=== PATIENT | male | born 1990 | race Caucasian/White ===

== ENCOUNTER 2022-10-09 12:19 | Inpatient (IN) ==
[2022-10-09] MEDS ORDERED: HALOPERIDOL LACTATE 5 MG/ML 1 ML VIAL IM STA (13:14)
[2022-10-09] MEDS ORDERED: LORazepam 1 MG/1 ML SYR IM STA (13:14)
--- NOTE | 2022-10-09 13:26 | Emergency Department Note ---
Impression & Plan Thought disorder, Suicidal ideation, Noncompliance with medications ED Provider Note INFORMANT: Patient ED PROVIDER(S): Jacob Garcia MD CHIEF COMPLAINT: Mental health evaluation PLAN: Disposition: Still patient Condition: Good Outpatient prescription management: none Referral: None MEDICAL DECISION MAKING: Patient presented because of suicidal statements and manic behavior. He was quite agitated and disruptive. He was difficult to direct in control. He did require restraint by the police. Due to his lack of cooperativity, concerns for his safety, and that of the staff I felt sedation was most appropriate in order to complete the evaluation and prevent any serious problems. Patient had a box B warrant done by the police. Case management myself did speak with the iesha ent's to gain additional history. This is the fourth hospitalization the patient has had since 2017. She did note that he is not taking his Latuda and Depakote. Due to the patient's agitation and behavior he did require chemical and physical restraints. He was given Haldol and Ativan. This worked well to have him calm down. He was able to sleep. Family did present to the emergency department, the patient's sister, brother and uncle and aunt. They noted that he has had a long issue with manic episodes and this current week has been very difficult. He has not been taking his medications as noted by the patient's . I did review the patient's current situation and need for inpatient treatment. They were very much in agreement and asked for his condition to be managed as an inpatient. The patient was frequently reassessed and is resting comfortably now. Family also noted that he has not slept in 3 to 4 days. The patient's vital signs remained stable. His case was signed out to Dr. Velasco at the change of shift. Triage Nursing notes reviewed and agree them. Vital Signs: reviewed and remarkable for no significant abnormalities Differential diagnosis: Mood disorder, infection, hypoglycemia, electrolyte abnormalities, cardiac sources, intracerebral event, toxicologic, trauma, neurologic, as well as other pathologies. Diagnostics interpreted by me: ECG: none Cardiac Monitoring: Cardiac monitoring ordered by me: The patient was placed on continuous cardiac monitoring and observed. It revealed a normal sinus rhythm at 73 beats per minute without ectopy or evidence of dysrhythmia. Imaging studies: X-ray imaging of the right hand reveals no evidence of fracture or dislocation HPI: The patient is a 31 year old male who presents to the Emergency Room with suicidal ideation. The patient has a history of jazzy. He reportedly is supposed to be taking Latuda and Depakote but states he has not done so for about a week and a half. History was obtained from police, the patient, and the patient's . The patient's noted that he was involuntarily held at a hospital in [facility] this week. He had evaluation by a building specialist there, which is there normal process for involuntary commitment, and despite recommendations for mental health the involuntary commitment was not upheld. The patient left and then he left voicemail messages with the family and feigned his own . He made suicidal statements. Patient states that he did research and felt that mushrooms would help him and came to [facility]. He ended up in a hinduism and he was reportedly quite manic last night. He was evaluated by the [facility] delegate and at that time was not deemed an imminent threat. He did not make any suicidal statements at that time. The police were then called to the hinduism today because of patient stripping off his close and holding a knife to his throat. Patient states that he was upset because the refrigerator and place was dirty and has been that way for 7 years. The patient then stated that this is the first time he is ever been to the hinduism. Police noted that they did have to restrain him and brought him to the emergency department. Upon arrival to the emergency department the patient was uncooperative and very tangential. He is not answering questions clearly. He is pacing about the room and climbing on the bed. Patient denies any current medical illness. He denies any pain. History is limited secondary to the patient's agitation and cooperation. Pt denies headache, fevers, chills, visual changes, neck pain, chest pain, breathing difficulties, nausea, vomiting, abdominal pain, back pain, weakness, lymphadenopathy, rash, or other complaints. ROS: See above HPI for pertinent positives & negatives. Limited secondary to the patient's cooperation. PAST MEDICAL HISTORY:See Below , jazzy PAST SURGICAL HISTORY:See Below, varicocele FAMILY HISTORY:See Below SOCIAL HISTORY:See Below, HOME MEDICATIONS:See Below ALLERGIES:See Below VITALS:See Below PHYSICAL EXAMINATION: GENERAL: Awake, hyper alert, pacing about the room, agitated appearing, no distress HENT: Normocephalic, atraumatic. TM's normal. Oropharynx unremarkable. EYES: PERRL. EOMI. Normal conjunctiva. Sclera non-icteric. NECK: Supple. Normal inspection. No nuchal rigidity. FROM. No JVD or bruit. RESPIRATORY: Clear. Breath sounds equal. No wheezes. No rhonchi. Normal respiratory effort. CARDIAC: Normal rate. Regular rhythm. No murmurs. No rubs. No JVD. ABDOMEN: Soft, non distended. No tenderness to palpation. No rebound or guarding. No masses. MUSCULOSKELETAL: Unremarkable. No edema. No discoloration. Gross motor strength symmetric. NEURO: Cranial nerves 2-12 grossly intact. Normal sensorium. No sensory or motor deficits noted. Speech normal. No pronator drift. SKIN: No rash or jaundice noted. LYMPH: No adenopathy. PSYCH: Labile affect and mood. + suicidal ideation reported however the patient is evasive at this point in time. Pressured speech. Disruptive. Not following commands. OBSERVATION NOTE: Indication: Thought disorder Patient, with acute jazzy and suicidal thoughts and hypertension family History, was first seen at 1200 hrs and the observation time began at 1330 hrs and was necessary due to his psychiatric issues as well as the need for sedation. The patient was frequently reassessed. He is sedated and resting comfortably. Vital signs stable. Case was signed out to Dr. Velasco at the change of shift Disposition date and time: Pending Jacob Garcia MD Past Med/Surg History Social History Smoking Status: Never smoker Preferred Language: Guyanese Feels Safe at Home: Yes Results & Data (ED) Vital Signs Vital Signs - 24 hr 10/09/22 12:28 10/09/22 13:49 10/09/22 14:20 Temperature 37.2 C Temperature Source Oral Pulse Rate 74 Pulse Rate [Finger] 71 61 Pulse Rate from SpO2 Sensor Respiratory Rate 18 22 16 Respiratory Effort / Characteristics Non-Labored Spontaneous Respiratory Depth Normal Respiratory Pattern Regular Blood Pressure 168/112 H Blood Pressure [Left Arm] 119/69 103/64 Blood Pressure Mean 130 Blood Pressure Mean [Left Arm] 85 77 Blood Pressure Position Sitting Pulse Oximetry 97 100 98 Oxygen Delivery Method Room Air Room Air Room Air Sepsis Recent Fever Within 48 Hours No Sepsis New/Unexplained Change in Mental Status N/A Sepsis Action Taken by Nursing No Action Required 10/09/22 15:21 10/09/22 15:51 10/09/22 17:00 Temperature Temperature Source Pulse Rate Pulse Rate [Finger] 73 67 88 Pulse Rate from SpO2 Sensor Respiratory Rate 16 16 18 Respiratory Effort / Characteristics Non-Labored Respiratory Depth Normal Respiratory Pattern Regular Blood Pressure Blood Pressure [Left Arm] 102/60 112/61 96/52 L Blood Pressure Mean Blood Pressure Mean [Left Arm] 74 78 66 Blood Pressure Position Pulse Oximetry 96 98 Oxygen Delivery Method Room Air Room Air Room Air Sepsis Recent Fever Within 48 Hours Sepsis New/Unexplained Change in Mental Status Sepsis Action Taken by Nursing 10/09/22 17:00 10/09/22 17:00 10/09/22 17:30 Temperature Temperature Source Pulse Rate 75 Pulse Rate [Finger] Pulse Rate from SpO2 Sensor Respiratory Rate Respiratory Effort / Characteristics Respiratory Depth Respiratory Pattern Blood Pressure 97/57 L 96/52 L Blood Pressure [Left Arm] Blood Pressure Mean 70 66 Blood Pressure Mean [Left Arm] Blood Pressure Position Pulse Oximetry Oxygen Delivery Method Sepsis Recent Fever Within 48 Hours Sepsis New/Unexplained Change in Mental Status Sepsis Action Taken by Nursing 10/09/22 17:30 10/09/22 18:00 10/09/22 18:00 Temperature Temperature Source Pulse Rate 66 73 Pulse Rate [Finger] Pulse Rate from SpO2 Sensor 68 Respiratory Rate 19 16 Respiratory Effort / Characteristics Respiratory Depth Respiratory Pattern Blood Pressure 109/46 L Blood Pressure [Left Arm] Blood Pressure Mean 67 Blood Pressure Mean [Left Arm] Blood Pressure Position Pulse Oximetry 96 Oxygen Delivery Method Room Air Sepsis Recent Fever Within 48 Hours Sepsis New/Unexplained Change in Mental Status Sepsis Action Taken by Nursing Laboratory Data Result diagrams: 10/09/22 13:49 10/09/22 13:49 Lab Results 10/09/22 10/09/22 10/09/22 Range/Units 13:25 13:25 13:35 WBC (4.8-10.8) K/ul RBC (4.63-6.08) M/uL Hgb (14.0-18.0) g/dl Hct (40.1-51.0) % MCV (80.0-100.0) fL MCH (25.0-34.0) pg MCHC (32.0-36.0) g/dL RDW Std Deviation (36.4-46.3) fL RDW Coeff of Gallo (11.5-14.5) % Plt Count (130-400) K/uL MPV (9.4-12.4) fL Immature Gran % (Auto) % Neut % (Auto) % Lymph % (Auto) % Garza % (Auto) % Eos % (Auto) % Baso % (Auto) % Neut # (Auto) (1.4-6.5) K/uL Lymph # (Auto) (1.2-3.4) K/uL Garza # (Auto) (0.24-0.82) K/uL Eos # (Auto) (0-0.50) K/uL Baso # (Auto) (0-0.2) K/uL Immature Gran # (Auto) (0.00-0.02) K/uL Sodium (136-145) mmol/L Potassium (3.5-5.1) mmol/L Chloride (98-107) mmol/L Carbon Dioxide (21-32) mmol/L Anion Gap (3-11) BUN (6-23) mg/dl Creatinine (0.6-1.4) mg/dl Est Cr Clr Drug Dosing Est GFR ( Amer) ml/min Est GFR (Non-Af Amer) ml/min BUN/Creatinine Ratio (10-20) Glucose (70-99(Fasting)) mg/dl Calcium (8.5-10.1) mg/dl Total Bilirubin (0.2-1.0) mg/dl AST (13-39) U/L ALT (7-52) U/L Alkaline Phosphatase (34-104) U/L Total Protein (6.0-8.3) gm/dl Albumin (3.4-5.0) gm/dl Globulin (2.5-4.0) gm/dl Albumin/Globulin Ratio (0.9-2) TSH (0.300-4.500) uIu/ml Urine Color Yellow Urine Appearance Clear (Clear) Urine pH 7.0 (4.5-7.5) Ur Specific [place] 1.003 (1.000-1.030) Urine Protein Negative (Negative) Urine Glucose (UA) Negative (Negative) Urine Ketones Negative (Negative) Urine Blood Negative (Negative) Urine Nitrite Negative (Negative) Urine Bilirubin Negative (Negative) Urine Urobilinogen Negative (Negative) Ur Leukocyte Esterase Negative (Negative) Salicylates (3.0-30) mg/dl Urine Opiates Screen Neg (Neg) Ur Methadone, Qual Neg (Neg) Acetaminophen (10-30) ug/ml Urine Barbiturates Neg (Neg) Ur Phencyclidine (PCP) Neg (Neg) U Amphetamin/Meth Scrn Neg (Neg) MDMA (Ecstasy) Screen Neg (Neg) U Benzodiazepines Scrn Neg (Neg) Ur Cocaine Metabolite Neg (Neg) U Marijuana (THC) Screen Pos H (Neg) Ethyl Alcohol mg/dL (<10.0) mg/dl SARS-CoV-2, RNA, NAAT NEGATIVE (NEGATIVE) 10/09/22 10/09/22 10/09/22 Range/Units 13:49 13:49 13:49 WBC 7.48 (4.8-10.8) K/ul RBC 5.13 (4.63-6.08) M/uL Hgb 14.1 (14.0-18.0) g/dl Hct 41.6 (40.1-51.0) % MCV 81.1 (80.0-100.0) fL MCH 27.5 (25.0-34.0) pg MCHC 33.9 (32.0-36.0) g/dL RDW Std Deviation 36.2 L (36.4-46.3) fL RDW Coeff of Gallo 12.3 (11.5-14.5) % Plt Count 268 (130-400) K/uL MPV 11.3 (9.4-12.4) fL Immature Gran % (Auto) 0.4 % Neut % (Auto) 64.7 % Lymph % (Auto) 27.9 % Garza % (Auto) 6.0 % Eos % (Auto) 0.5 % Baso % (Auto) 0.5 % Neut # (Auto) 4.83 (1.4-6.5) K/uL Lymph # (Auto) 2.09 (1.2-3.4) K/uL Garza # (Auto) 0.45 (0.24-0.82) K/uL Eos # (Auto) 0.04 (0-0.50) K/uL Baso # (Auto) 0.04 (0-0.2) K/uL Immature Gran # (Auto) 0.03 H (0.00-0.02) K/uL Sodium 137 (136-145) mmol/L Potassium 3.8 (3.5-5.1) mmol/L Chloride 102 (98-107) mmol/L Carbon Dioxide 27 (21-32) mmol/L Anion Gap 8 (3-11) BUN 8 (6-23) mg/dl Creatinine 0.65 (0.6-1.4) mg/dl Est Cr Clr Drug Dosing Not Reportable Est GFR ( Amer) 148.2 ml/min Est GFR (Non-Af Amer) 127.8 ml/min BUN/Creatinine Ratio 12.3 (10-20) Glucose 114 H (70-99(Fasting)) mg/dl Calcium 9.5 (8.5-10.1) mg/dl Total Bilirubin 0.9 (0.2-1.0) mg/dl AST 22 (13-39) U/L ALT 18 (7-52) U/L Alkaline Phosphatase 54 (34-104) U/L Total Protein 7.3 (6.0-8.3) gm/dl Albumin 4.5 (3.4-5.0) gm/dl Globulin 2.8 (2.5-4.0) gm/dl Albumin/Globulin Ratio 1.6 (0.9-2) TSH 0.794 (0.300-4.500) uIu/ml Urine Color Urine Appearance (Clear) Urine pH (4.5-7.5) Ur Specific [place] (1.000-1.030) Urine Protein (Negative) Urine Glucose (UA) (Negative) Urine Ketones (Negative) Urine Blood (Negative) Urine Nitrite (Negative) Urine Bilirubin (Negative) Urine Urobilinogen (Negative) Ur Leukocyte Esterase (Negative) Salicylates (3.0-30) mg/dl Urine Opiates Screen (Neg) Ur Methadone, Qual (Neg) Acetaminophen (10-30) ug/ml Urine Barbiturates (Neg) Ur Phencyclidine (PCP) (Neg) U Amphetamin/Meth Scrn (Neg) MDMA (Ecstasy) Screen (Neg) U Benzodiazepines Scrn (Neg) Ur Cocaine Metabolite (Neg) U Marijuana (THC) Screen (Neg) Ethyl Alcohol mg/dL (<10.0) mg/dl SARS-CoV-2, RNA, NAAT (NEGATIVE) 10/09/22 10/09/22 Range/Units 13:49 13:49 WBC (4.8-10.8) K/ul RBC (4.63-6.08) M/uL Hgb (14.0-18.0) g/dl Hct (40.1-51.0) % MCV (80.0-100.0) fL MCH (25.0-34.0) pg MCHC (32.0-36.0) g/dL RDW Std Deviation (36.4-46.3) fL RDW Coeff of Gallo (11.5-14.5) % Plt Count (130-400) K/uL MPV (9.4-12.4) fL Immature Gran % (Auto) % Neut % (Auto) % Lymph % (Auto) % Garza % (Auto) % Eos % (Auto) % Baso % (Auto) % Neut # (Auto) (1.4-6.5) K/uL Lymph # (Auto) (1.2-3.4) K/uL Garza # (Auto) (0.24-0.82) K/uL Eos # (Auto) (0-0.50) K/uL Baso # (Auto) (0-0.2) K/uL Immature Gran # (Auto) (0.00-0.02) K/uL Sodium (136-145) mmol/L Potassium (3.5-5.1) mmol/L Chloride (98-107) mmol/L Carbon Dioxide (21-32) mmol/L Anion Gap (3-11) BUN (6-23) mg/dl Creatinine (0.6-1.4) mg/dl Est Cr Clr Drug Dosing Est GFR ( Amer) ml/min Est GFR (Non-Af Amer) ml/min BUN/Creatinine Ratio (10-20) Glucose (70-99(Fasting)) mg/dl Calcium (8.5-10.1) mg/dl Total Bilirubin (0.2-1.0) mg/dl AST (13-39) U/L ALT (7-52) U/L Alkaline Phosphatase (34-104) U/L Total Protein (6.0-8.3) gm/dl Albumin (3.4-5.0) gm/dl Globulin (2.5-4.0) gm/dl Albumin/Globulin Ratio (0.9-2) TSH (0.300-4.500) uIu/ml Urine Color Urine Appearance (Clear) Urine pH (4.5-7.5) Ur Specific [place] (1.000-1.030) Urine Protein (Negative) Urine Glucose (UA) (Negative) Urine Ketones (Negative) Urine Blood (Negative) Urine Nitrite (Negative) Urine Bilirubin (Negative) Urine Urobilinogen (Negative) Ur Leukocyte Esterase (Negative) Salicylates < 3.0 L (3.0-30) mg/dl Urine Opiates Screen (Neg) Ur Methadone, Qual (Neg) Acetaminophen < 3 L (10-30) ug/ml Urine Barbiturates (Neg) Ur Phencyclidine (PCP) (Neg) U Amphetamin/Meth Scrn (Neg) MDMA (Ecstasy) Screen (Neg) U Benzodiazepines Scrn (Neg) Ur Cocaine Metabolite (Neg) U Marijuana (THC) Screen (Neg) Ethyl Alcohol mg/dL < 10.0 (<10.0) mg/dl SARS-CoV-2, RNA, NAAT (NEGATIVE) Administered Medications Discontinued Medications Haloperidol Lactate (Haloperidol Lactate 5 Mg/Ml 1 Ml Vial) 10 mg IM NOW STA Stop: 10/09/22 13:15 Last Admin: 10/09/22 13:23 Dose: 10 mg Documented By: MICHAEL Lorazepam (Lorazepam 1 Mg/1 Ml Syr) 2 mg IM NOW STA; Protocol Stop: 10/09/22 13:15 Last Admin: 10/09/22 13:24 Dose: 2 mg Documented By: MICHAEL Imaging Data Radiologist's Impression: Hand X-Ray 10/09/22 13:48 RIGHT HAND 3 VIEWS HISTORY: Right hand 3rd MCP swelling, trauma COMPARISON: None. FINDINGS: There is no fracture or dislocation. Dorsal soft tissue swelling at the third MCP joint. No radiopaque foreign bodies. IMPRESSION: Dorsal soft tissue swelling at the third MCP joint. No fractures. ACT 112: Negative or not required by law. Electronically signed by: Kurt York M.D. 10/09/2022 2:43 PM Discharge Plan Visit Data Chief Complaint: Mental Health Evaluation Stated Complaint: MENTAL HEALTH EVAL ED Provider: Pj Velasco Discharge Problem: Thought disorder, Suicidal ideation, Noncompliance with medications Forms Stand Alone Forms: My [facility], Suicide Prevention Resources Referrals Referrals: PCP,NO [Primary Care Provider] -
[2022-10-09 14:00] LABS: Appearance Urine Clear (Clear); Bilirubin Urine Negative (Negative); Blood Urine Negative (Negative); Color Urine Yellow; Glucose Urine UA Negative (Negative); Ketones Urine Negative (Negative); Leukocyte Esterase Urine Negative (Negative); Nitrite Urine Negative (Negative); Protein Urine Negative (Negative); Specific Gravity Urine 1.003 (1.000-1.030); Urobilinogen Urine Negative (Negative)
[2022-10-09 14:02] LABS: Basophils # (auto) 0.04 K/uL (0-0.2); Basophils % (auto) 0.5 %; Eosinophils # (auto) 0.04 K/uL (0-0.50); Eosinophils % (auto) 0.5 %; Hematocrit (blood only) 41.6 % (40.1-51.0); Hemoglobin 14.1 g/dl (14.0-18.0); Immature Granulocytes # (auto) 0.03 K/uL (0.00-0.02); Immature Granulocytes % (auto) 0.4 %; Lymphocytes # (auto) 2.09 K/uL (1.2-3.4); Lymphocytes % (auto) 27.9 %; Mean Corpuscular Hemoglobin 27.5 pg (25.0-34.0); Mean Corpuscular Hgb Conc 33.9 g/dL (32.0-36.0); Mean Corpuscular Volume 81.1 fL (80.0-100.0); Mean Platelet Volume 11.3 fL (9.4-12.4); Monocytes # (auto) 0.45 K/uL (0.24-0.82); Neutrophils # (auto) 4.83 K/uL (1.4-6.5); Neutrophils % (auto) 64.7 %; Platelet Count 268 K/uL (130-400); RDW Coefficient of Variation 12.3 % (11.5-14.5); RDW Standard Deviation 36.2 fL (36.4-46.3); Red Blood Count 5.13 M/uL (4.63-6.08); White Blood Count 7.48 K/ul (4.8-10.8)
[2022-10-09 14:24] LABS: Alanine Aminotransferase 18 U/L (7-52); Albumin Globulin Ratio 1.6 (0.9-2); Albumin Level 4.5 gm/dl (3.4-5.0); Alkaline Phosphatase 54 U/L (34-104); Anion Gap 8 (3-11); Aspartate Aminotransferase 22 U/L (13-39); BUN Creatinine Ratio 12.3 (10-20); Bilirubin,Total 0.9 mg/dl (0.2-1.0); Blood Urea Nitrogen 8 mg/dl (6-23); Calcium 9.5 mg/dl (8.5-10.1); Carbon Dioxide 27 mmol/L (21-32); Chloride 102 mmol/L (98-107); Est GFR (African American) 148.2 ml/min; Est GFR (Non-African American) 127.8 ml/min; Globulin 2.8 gm/dl (2.5-4.0); Glucose 114 mg/dl (70-99(Fasting)); Potassium 3.8 mmol/L (3.5-5.1); Sodium 137 mmol/L (136-145); Total Protein 7.3 gm/dl (6.0-8.3)
[2022-10-09 14:26] LABS: Acetaminophen < 3 ug/ml (10-30); Salicylate < 3.0 mg/dl (3.0-30)
[2022-10-09 14:32] LABS: Amphetamines+Metham, Urine Neg (Neg); Barbiturates, Urine Neg (Neg); Benzodiazepine, Urine Neg (Neg); Cocaine, Urine Neg (Neg); MDMA (Ecstacy), Urine Neg (Neg); Methadone, Urine Neg (Neg); Opiate, Urine Neg (Neg); Phencyclidine, Urine Neg (Neg)
--- NOTE | 2022-10-09 14:46 | XRay Report ---
RIGHT HAND 3 VIEWS HISTORY: Right hand 3rd MCP swelling, trauma COMPARISON: None. FINDINGS: There is no fracture or dislocation. Dorsal soft tissue swelling at the third MCP joint. No radiopaque foreign bodies. IMPRESSION: Dorsal soft tissue swelling at the third MCP joint. No fractures. ACT 112: Negative or not required by law. Electronically signed by: Kurt York M.D. 10/09/2022 2:43 PM
--- NOTE | 2022-10-09 18:52 | Emergency Department Note ---
ED Visit Note ED Physician Sign Out Note: 31 yr old male with a history of jazzy and recent hospitalization in [facility] for acute psychiatric illness. Arrived this morning to ED after apparently making suicidal threats to family. Patient took a knife to his throat and at that point Police brought him to ED. Patient severely agitated on arrival thus sedated on arrival. Family has been involved and at the hospital earlier. 302 Petition by family as well as a 302 Box B by police on the chart. Patient signed out to me by Dr Garcia pending placement. Patient sleeping soundly on repeat evaluation. Plan was that patient is to sleep as long as he can before being awoke and for further psychiatric evaluation. Signed out to Dr Paz pending further evaluation. Pj Velasco MD
--- NOTE | 2022-10-10 06:31 | Emergency Department Note ---
ED Visit Note Received this patient in signout. See prior notes for full details. Patient here with concern for suicidal thoughts requiring sedation and restraint yesterday. Ambulatory in the hallway here. Later asked to see me. 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 Circumferential and pressured speech. Asked to speak to his brother via phone and will have case management assist with this. Case management has been involved as the county delegate given the 302 status. 3 Frankie did review the patient for admission but declined at this time due to acuity but recommended an oral dose of Zyprexa. This was ordered. Signed out at the end of my shift to Dr. Cook. .
--- NOTE | 2022-10-10 08:44 | Emergency Department Note ---
ED Visit Note Patient signed out to me at change of shift from Dr. Velasco. Patient here is a 302 box B as well as a family petition. Patient calm and cooperative during my shift. He did awake from the prior Haldol and Ativan he had previously been given. Patient appears acutely manic and delusional. 302 upheld and signed by myself. Delegate will be called this morning. Case signed out to Dr. Padilla pending final disposition. .
[2022-10-10] MEDS ORDERED: OLANZapine ZYDIS 5 MG ORALLY DIS. TAB PO ONE (14:55)
--- NOTE | 2022-10-10 15:59 | Emergency Department Note ---
ED Visit Note This patient was signed out to me at shift change by Dr. Bowie. The patient had been agitated and had been sedated previously. Apparently he was psychotic he did get Zyprexa while he is here bed search is going on. He has been 302 to medically cleared previously. He is much more cooperative and doing better with the Zyprexa and when I went and checked on him he is eating and doing well. He will be signed out to the evening or night shift supervisor doctor. .
[2022-10-11] MEDS ORDERED: OLANZapine 5 MG TABLET PO STA (02:18)
[2022-10-11] MEDS ORDERED: LORazepam 1 MG TAB PO STA ×2 (03:32→13:23)
--- NOTE | 2022-10-11 05:47 | Emergency Department Note ---
ED Visit Note Patient was signed out to me at change of shift by Dr. Cook, patient is currently undergoing a bed search under 201 for agitated behavior and suicidal thoughts. Patient was given a dose of Zyprexa overnight as well as a dose of Ativan for restlessness and insomnia. He remained otherwise stable overnight without any need for acute intervention on my part. Patient was signed out to my colleague, Dr. Avalos, at change of shift in the morning pending psychiatric evaluation later today for assessment for possible placement at [facility]. .
--- NOTE | 2022-10-11 06:29 | Emergency Department Note ---
ED Visit Note Patient received in signout this morning. See prior notes for full details of the patient is here on a involuntary commitment given concerns for psychosis. Did receive some Zyprexa yesterday afternoon and overnight orally but did not require forceful restraint or sedation. Continued bed search this morning. Given his unfortunate length of stay psychiatric consultation will be ordered for today. Patient accepted [facility]. for further inpatient care.
[2022-10-11] MEDS ORDERED: OLANZapine 10 MG/2.1 ML SDV IM PRN (13:10)
[2022-10-11] MEDS ORDERED: hydrOXYzine HCl 25 MG TAB PO PRN (13:48)
[2022-10-11] MEDS ORDERED: ALUMINUM/MAGNESIUM SUSP 30 ML UDC PO PRN (13:48)
[2022-10-11] MEDS ORDERED: ACETAMINOPHEN 325 MG TAB PO PRN (13:48)
[2022-10-11] MEDS ORDERED: BISMUTH SUBSALICYLATE LIQD 236 ML PO PRN (13:48)
[2022-10-11] MEDS ORDERED: SODIUM CHLORIDE 0.65% NA SOLN 45 ML (OCEAN) PRN (13:48)
[2022-10-11] MEDS ORDERED: MAGNESIUM HYDROXIDE SUSP 30 ML UDC PO PRN (13:48)
--- NOTE | 2022-10-11 13:53 | Psychiatric Consultation ---
Date of Consultation October 11, 2022 Psych History History of Present Illness patient initially agitated on arrival to ED, more cooperative following IM on arrival and accepted several doses of PO medications. There is now an appropriate bed available on 3S and the patient will be admitted. Please see H&P for full history. Allergies Allergy/AdvReac Type Severity Reaction Status Date / Time No Known Allergies Allergy Verified 10/10/22 00:44 Home Medications Medication Instructions Recorded Confirmed Type divalproex 500 mg tablet,delayed 500 mg PO BID 10/10/22 10/10/22 History release lurasidone 40 mg tablet (Latuda) 40 mg PO DAILY 10/10/22 10/10/22 History Patient History Social History Smoking Status: Never smoker Preferred Language: Georgian Feels Safe at Home: Yes Physical Exam Vital Signs (Past 24 Hours): Last Vital Signs Temp 36.7 C 10/11/22 12:19 Pulse 117 H 10/11/22 12:19 Resp 18 10/11/22 12:19 BP 123/78 10/11/22 12:19 Pulse Ox 97 10/11/22 12:19 O2 Del Method 10/10/22 20:00 Coding Level of Care Code None
--- NOTE | 2022-10-11 15:57 | History & Physical ---
Date of Service October 11, 2022 Impression / Recommendations Impression 31 yo male with prior hx of bipolar disorder, presents with acute jazzy following period of non compliance with his mood stabilizer. He is already less agitated with care recieved in ED and willing to resume Latuda pending additional collateral. (1) Bipolar 1 disorder: Plan The patient was admitted to the [facility] ([facility] unit) on q15 min checks (behavioral with suicide precautions) for safety. The patient will participate in group, recreational, and milieu therapies and will be offered additional individual and family sessions as clinically appropriate. Risks/benefits/alternatives were reviewed re: antipsychotics for mood and/or psychosis. Discussion included but was not limited to metabolic side effects, risks of TD and suicidal thoughts. There were no abnormal motor movements at baseline. Fasting glucose and lipid panel ordered for baseline monitoring. Will order prn Ativan PO for agitation and Zyprexa IM. Will discuss Depakote retrial next. Collateral from family. Inventory Assets Strengths: intelligent, man of poornima Needs: restart medication, confirm outpatient providers. Suicide Risk Level Suicide Risk Level: Moderate (q15 min suicide checks) Suicide Risk Level Comments: patient did have knife to neck prior to admission and behaves somewhat unpredictably. Risk Factors Assessment Male: Yes Mental Health Diagnoses: Yes Previous Psychiatric Hospitalization: Yes Protective Factors Assessment : Yes Supportive Family: Yes Psychiatric History Identifying Data ZINA COPELAND is a 31-year-old M from [place], has a history of bipolar disorder, and was admitted on 10/11/22 13:48 on a 302 involuntary commitment for manic agitation. Has been boarding in the ED since 10/09/22. Chief Complaint "I love Latuda it helps me, may I sing you a song?" History of Present Illness Zina was taken by to a hospital in [place], [place] on 10/06/22. At that time the farm products shipper did not uphold the involuntary commitment and he was re leased. He had reportedly been noncompliant with his Depakote and Latuda and has a history of inpatient care. He immediately left his home to drive to [facility] as he reportedly was researching mushrooms online and believed that he could start a graduate program here. He reportedly made some dramatic statements to family in some group chats with culminated in him leaving voicemail making is sound like day lemus had been in a car accident. He turned off his phone for several hours to "play ." Upon arrival to [place] he sought fdc in a local [place]. Police were called as he was reportedly stripping off his clothes and held a knife to his throat because the refrigerator at that time. He did require physical restraint by police and then IM Haldol and Ativan on arrival to ED. He has been more cooperative since that time, even accepting a few doses of PO Zyprexa and Ativan. He does exhibit poor physical boundaries and is religiously preoccupied singing me multiple prayers in Frisian. 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 must obtain collateral. Current Psychiatric Diagnosis: Bipolar disorder Previous Psych Admissions: 3 since 2016 Past Medication Trials: Latuda, Depakote Allergies Allergy/AdvReac Type Severity Reaction Status Date / Time No Known Allergies Allergy Verified 10/10/22 00:44 Home Medications Medication Instructions Recorded Confirmed Type divalproex 500 mg tablet,delayed 500 mg PO BID 10/10/22 10/10/22 History release lurasidone 40 mg tablet (Latuda) 40 mg PO DAILY 10/10/22 10/10/22 History Family History Family History of: Doesn't Know Alcohol History Hx of Alcohol Use Over the Past 12 Months: No AUDIT Total Score: 0 Smoking Use Have You Smoked or Used Tobacco Products in the Last 30 Days: No Smoking Status: Never smoker Substance History Hx of Prescription Med Misuse Over the Past 12 Months: No Hx of Over the Counter Med Misuse Over the Past 12 Months: No Hx of Inhalent Misuse Over the Past 12 Months: No Hx of Organic Substance Use Over the Past 12 Months: Yes (UDS + THC) Hx of Illegal Substances/Street Drug Use Over Past 12 Months: No Problems as a Result of Past Substance Use: None Identified Personal History Highest Grade Completed: Some College Employment Status: Unknown Marital Status: Beliefs That Will Affect Care: Jew Current Legal Problems: No Psychological Trauma History Comment: states he was targeted for his religious during a previous inpatient stay Additional Comments: practicing Cheondoism. will provide mat for prayer. 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 Beliefs That Will Affect Care: Jew Jew Beliefs: Praying several times per day - Evangelical Feels Safe at Home: Yes Assistive Devices: None Review of Systems Review of Systems: All systems reviewed & are unremarkable except as noted in HPI & below Physical Exam Psychiatric: Orientation: alert, oriented to person, oriented to place and oriented to time (general) Apperance: appropriately dressed and appropriately groomed Eye Contact: good eye contact Motor Behavior: no abnormal motor movements (minimal psychomotor restlessness) Speech: + abnormal rate/rhythm/volume of speech (hyperverbal) Affect: + elated affect Mood: no depressed mood (expansive) Thought Process: + tangential thought process Thought Content: no delusions Suicidal Thoughts: denies suicidal thoughts Homicidal Thoughts: denies homicidal thoughts Hallucinations: no auditory hallucinations and no visual hallucinations Cognition: language grossly intact; + attention not intact Estimated Intelligence: consistent with education level Insight: + limited insight Judgement: + limited judgement Vital Signs (Past 24 Hours): Last Vital Signs Temp 36.6 C 10/11/22 14:16 Pulse 99 H 10/11/22 14:16 Resp 16 10/11/22 14:16 BP 126/78 10/11/22 14:16 Pulse Ox 99 10/11/22 14:16 O2 Del Method 10/11/22 14:16 Exam Statement: A physical exam was performed in the ED by Dr. Garcia for the purposes of medical clearance. I accept that physical as correct and adequate for the purposes of the inpatient physical exam. Results & Data ([facility]) Laboratory Results Labs 10/09/22 10/09/22 10/09/22 13:25 13:25 13:35 WBC RBC Hgb Hct MCV MCH MCHC RDW Std Deviation RDW Coeff of Gallo Plt Count MPV Immature Gran % (Auto) Neut % (Auto) Lymph % (Auto) Kemper % (Auto) Eos % (Auto) Baso % (Auto) Neut # (Auto) Lymph # (Auto) Kemper # (Auto) Eos # (Auto) Baso # (Auto) Immature Gran # (Auto) Sodium Potassium Chloride Carbon Dioxide Anion Gap BUN Creatinine Est Cr Clr Drug Dosing Est GFR ( Amer) Est GFR (Non-Af Amer) BUN/Creatinine Ratio Glucose Calcium Total Bilirubin AST ALT Alkaline Phosphatase Total Protein Albumin Globulin Albumin/Globulin Ratio TSH Urine Color Yellow Urine Appearance Clear Urine pH 7.0 Ur Specific Shelby 1.003 Urine Protein Negative Urine Glucose (UA) Negative Urine Ketones Negative Urine Blood Negative Urine Nitrite Negative Urine Bilirubin Negative Urine Urobilinogen Negative Ur Leukocyte Esterase Negative Salicylates Urine Opiates Screen Neg Ur Methadone, Qual Neg Acetaminophen Urine Barbiturates Neg Ur Phencyclidine (PCP) Neg U Amphetamin/Meth Scrn Neg MDMA (Ecstasy) Screen Neg U Benzodiazepines Scrn Neg Ur Cocaine Metabolite Neg U Marijuana (THC) Screen Pos H Ethyl Alcohol mg/dL SARS-CoV-2, RNA, NAAT NEGATIVE 10/09/22 10/09/22 10/09/22 13:49 13:49 13:49 WBC 7.48 RBC 5.13 Hgb 14.1 Hct 41.6 MCV 81.1 MCH 27.5 MCHC 33.9 RDW Std Deviation 36.2 L RDW Coeff of Gallo 12.3 Plt Count 268 MPV 11.3 Immature Gran % (Auto) 0.4 Neut % (Auto) 64.7 Lymph % (Auto) 27.9 Kemper % (Auto) 6.0 Eos % (Auto) 0.5 Baso % (Auto) 0.5 Neut # (Auto) 4.83 Lymph # (Auto) 2.09 Kemper # (Auto) 0.45 Eos # (Auto) 0.04 Baso # (Auto) 0.04 Immature Gran # (Auto) 0.03 H Sodium 137 Potassium 3.8 Chloride 102 Carbon Dioxide 27 Anion Gap 8 BUN 8 Creatinine 0.65 Est Cr Clr Drug Dosing Not Reportable Est GFR ( Amer) 148.2 Est GFR (Non-Af Amer) 127.8 BUN/Creatinine Ratio 12.3 Glucose 114 H Calcium 9.5 Total Bilirubin 0.9 AST 22 ALT 18 Alkaline Phosphatase 54 Total Protein 7.3 Albumin 4.5 Globulin 2.8 Albumin/Globulin Ratio 1.6 TSH 0.794 Urine Color Urine Appearance Urine pH Ur Specific Shelby Urine Protein Urine Glucose (UA) Urine Ketones Urine Blood Urine Nitrite Urine Bilirubin Urine Urobilinogen Ur Leukocyte Esterase Salicylates Urine Opiates Screen Ur Methadone, Qual Acetaminophen Urine Barbiturates Ur Phencyclidine (PCP) U Amphetamin/Meth Scrn MDMA (Ecstasy) Screen U Benzodiazepines Scrn Ur Cocaine Metabolite U Marijuana (THC) Screen Ethyl Alcohol mg/dL SARS-CoV-2, RNA, NAAT 10/09/22 10/09/22 13:49 13:49 WBC RBC Hgb Hct MCV MCH MCHC RDW Std Deviation RDW Coeff of Gallo Plt Count MPV Immature Gran % (Auto) Neut % (Auto) Lymph % (Auto) Kemper % (Auto) Eos % (Auto) Baso % (Auto) Neut # (Auto) Lymph # (Auto) Kemper # (Auto) Eos # (Auto) Baso # (Auto) Immature Gran # (Auto) Sodium Potassium Chloride Carbon Dioxide Anion Gap BUN Creatinine Est Cr Clr Drug Dosing Est GFR ( Amer) Est GFR (Non-Af Amer) BUN/Creatinine Ratio Glucose Calcium Total Bilirubin AST ALT Alkaline Phosphatase Total Protein Albumin Globulin Albumin/Globulin Ratio TSH Urine Color Urine Appearance Urine pH Ur Specific Shelby Urine Protein Urine Glucose (UA) Urine Ketones Urine Blood Urine Nitrite Urine Bilirubin Urine Urobilinogen Ur Leukocyte Esterase Salicylates < 3.0 L Urine Opiates Screen Ur Methadone, Qual Acetaminophen < 3 L Urine Barbiturates Ur Phencyclidine (PCP) U Amphetamin/Meth Scrn MDMA (Ecstasy) Screen U Benzodiazepines Scrn Ur Cocaine Metabolite U Marijuana (THC) Screen Ethyl Alcohol mg/dL < 10.0 SARS-CoV-2, RNA, NAAT Current Inpatient Medications Current Inpatient Medications: Current Inpatient Medications Acetaminophen (Acetaminophen 325 Mg Tab) 650 mg PO Q4H PRN PRN Reason: Headache or Minor Fever Stop: 11/10/22 13:47 Al Hydrox/Mg Hydrox/Simethicone (Aluminum/Magnesium Susp 30 Ml Udc) 30 ml PO Q 4H PRN PRN Reason: GI Upset Stop: 11/10/22 13:47 Bismuth Subsalicylate (Bismuth Subsalicylate Liqd 236 Ml) 15 ml PO PRN PRN PRN Reason: Loose Stool Stop: 11/10/22 13:47 Hydroxyzine HCl (Hydroxyzine Hcl 25 Mg Tab) 50 mg PO HSZ PRN PRN Reason: Insomnia Stop: 11/10/22 13:47 Lorazepam (Lorazepam 1 Mg Tab) 1 mg PO Q4 PRN PRN Reason: Anxiety/Agitation Stop: 11/10/22 13:09 Lurasidone HCl (Lurasidone Hcl 40 Mg Tab) 40 mg PO DAILYBD JANET Stop: 11/10/22 17:14 Magnesium Hydroxide (Magnesium Hydroxide Susp 30 Ml Udc) 30 ml PO DAILY PRN PRN Reason: Constipation Stop: 11/10/22 13:47 Olanzapine (Olanzapine 10 Mg/2.1 Ml Sdv) 10 mg IM Q8 PRN PRN Reason: Agitation Stop: 11/10/22 13:59 Olanzapine (Olanzapine 5 Mg Tablet) 5 mg PO Q4 PRN PRN Reason: Agitation Stop: 11/10/22 15:59 Sodium Chloride (Sodium Chloride 0.65% Na Soln 45 Ml ([place])) 1 - 2 sprays NA PRN PRN PRN Reason: Nasal Dryness/Congestion Stop: 11/10/22 13:47
[2022-10-11] MEDS: LORazepam 1 MG TAB PO PRN (18:01)
[2022-10-11] MEDS: LURASIDONE HCL 40 MG TAB PO SCH (18:01)
[2022-10-11] MEDS ORDERED: OLANZapine 5 MG TABLET PO SCH (21:00)
[2022-10-12] MEDS: LORazepam 1 MG TAB PO PRN ×2 (07:55→12:21)
[2022-10-12] MEDS: OLANZapine 5 MG TABLET PO PRN ×4 (07:56→22:00)
--- NOTE | 2022-10-12 13:55 | Psychiatric Progress Note ---
Date of Service October 12, 2022 Impression / Recommendations Impression 31 yo male with prior hx of bipolar disorder, presents with acute jazzy following period of non compliance with his mood stabilizer. He is already less agitated with care recieved in ED and willing to resume Latuda pending additional collateral. 10/12/22: improving (1) Bipolar 1 disorder: Plan 10/12/22: continue Latuda 40 mg (previous dose 20 mg). Patient previously on monotherapy (depakote was sedating at work) so declines to resume Depakote. 10/11/22: The patient was admitted to the [facility] ([facility] mental health unit) on q15 min checks (behavioral with suicide precautions) for safety. The patient will participate in group, recreational, and milieu therapies and will be offered additional individual and family sessions as clinically appropriate. Risks/benefits/alternatives were reviewed re: antipsychotics for mood and/or psychosis. Discussion included but was not limited to metabolic side effects, risks of TD and suicidal thoughts. There were no abnormal motor movements at baseline. Fasting glucose and lipid panel ordered for baseline monitoring. Will order prn Ativan PO for agitation and Zyprexa IM. Will discuss Depakote ret rial next. Collateral from family. Inventory Assets Strengths: intelligent, man of poornima Needs: restart medication, confirm outpatient providers. Suicide Risk Level Suicide Risk Level: Moderate (q15 min suicide checks) Suicide Risk Level Comments: unpredictable Risk Factors Assessment Male: Yes Mental Health Diagnoses: Yes Previous Psychiatric Hospitalization: Yes Protective Factors Assessment : Yes Supportive Family: Yes Interval History Identifying Information ZINA COPELAND is a 31-year-old M from [place], has a history of bipolar disorder, and was admitted on 10/11/22 13:48 on a 302 involuntary commitment for manic agitation. Had been boarding in the ED since 10/09/22. Chief Complaint "so I have a plan, I know what manic is, I've been way worse in the past as I had a big bag of weed, I don't plan to return to my ." Review of Systems Sleep Information Total Hours of Sleep: 4.5 Sleep Comments: pt awoke @ 0330 and thereafter. pt restless, pacing the hallway, stated "I have slept enough" pt verbal needed redirection at times. pt on q-15 minute checks. Meal Information Percent Meal Consumed - Breakfast: 100 Percent Meal Consumed - Lunch: 100 Percent Meal Consumed - Dinner: 100 Subjective Subjective Patient was seen & assessed and interval progress reviewed with treatment team. He is accepting prns and cooperative with scheduled meds (latuda). He remains grandiose but is able to provide more history re: his upset that family (primarily ) tried to have him committed. He is refusing contact with his as he wants to "deal with her in court" and are attempting to get collateral from an identified friend with whom he'd like to stay for a few days after discharge. He is not responding to internal stimuli, is eating/sleeping and attending to hygiene. He has had better physical boundaries though did reportedly walk into another patient's room without explaination. He reported a history of aggression when manic and past hospital stays precipitated by heavy MJ use but denies any regular recent use. He is willing to staff review his social media as there was concerns about him posting about self-harm and/or trying to solicit money. He states that IVF is expensive. 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 His therapist of 5 years informed SW (Dr. Medel, patient's psychologist with [facility]). She confirmed 2 prior hospitalizations for jazzy, typically more decompensated with aggression but not hypersexual or religiously preoccupied at baseline. His attendance at appointments hasn't been as good and of course this spisode was precipitated by med compliance as she has not been staying at home but rather sleeping in mosques. He is highly intelligent at baseline. His recent behaviors have including taking money from a tip jar, telling uncle that he'll release pictures if doesn't give money but no charges filed to her knowledge. He has no history of self harm or suicide attempts. Physical Exam Psychiatric Orientation: alert, oriented to person, oriented to place and oriented to time (general) Apperance: appropriately dressed and appropriately groomed Eye Contact: good eye contact Motor Behavior: no abnormal motor movements (minimal psychomotor restlessness) Speech: + abnormal rate/rhythm/volume of speech (hyperverbal) Affect: euthymic affect Mood: no depressed mood (expansive) Thought Process: + circumstantial thought process Thought Content: no delusions Suicidal Thoughts: denies suicidal thoughts Homicidal Thoughts: denies homicidal thoughts Hallucinations: no auditory hallucinations and no visual hallucinations Cognition: language grossly intact; + attention not intact Estimated Intelligence: consistent with education level Insight: + limited insight Judgement: + limited judgement Vital Signs (Past 24 Hours) Last Vital Signs Temp 36.4 C L 10/12/22 06:42 Pulse 101 H 10/12/22 06:42 Resp 18 10/12/22 06:42 BP 148/78 H 10/12/22 06:42 Pulse Ox 99 10/11/22 14:16 O2 Del Method 10/11/22 14:16 Results & Data ([facility]) Current Inpatient Medications Current Inpatient Medications: Current Inpatient Medications Acetaminophen (Acetaminophen 325 Mg Tab) 650 mg PO Q4H PRN PRN Reason: Headache or Minor Fever Stop: 11/10/22 13:47 Al Hydrox/Mg Hydrox/Simethicone (Aluminum/Magnesium Susp 30 Ml Udc) 30 ml PO Q4H PRN PRN Reason: GI Upset Stop: 11/10/22 13:47 Bismuth Subsalicylate (Bismuth Subsalicylate Liqd 236 Ml) 15 ml PO PRN PRN PRN Reason: Loose Stool Stop: 11/10/22 13:47 Hydroxyzine HCl (Hydroxyzine Hcl 25 Mg Tab) 50 mg PO HSZ PRN PRN Reason: Insomnia Stop: 11/10/22 13:47 Lorazepam (Lorazepam 1 Mg Tab) 1 mg PO Q4 PRN PRN Reason: Anxiety/Agitation Stop: 11/10/22 13:09 Last Admin: 10/12/22 12:21 Dose: 1 mg Lurasidone HCl (Lurasidone Hcl 40 Mg Tab) 40 mg PO DAILYBD JANET Stop: 11/10/22 17:14 Last Admin: 10/11/22 18:01 Dose: 40 mg Magnesium Hydroxide (Magnesium Hydroxide Susp 30 Ml Udc) 30 ml PO DAILY PRN PRN Reason: Constipation Stop: 11/10/22 13:47 Olanzapine (Olanzapine 10 Mg/2.1 Ml Sdv) 10 mg IM Q8 PRN PRN Reason: Agitation Stop: 11/10/22 13:59 Olanzapine (Olanzapine 5 Mg Tablet) 5 mg PO Q4 PRN PRN Reason: Agitation Stop: 11/10/22 15:59 Last Admin: 10/12/22 12:21 Dose: 5 mg Sodium Chloride (Sodium Chloride 0.65% Na Soln 45 Ml ([place])) 1 - 2 sprays NA PRN PRN PRN Reason: Nasal Dryness/Congestion Stop: 11/10/22 13:47 Mental Health & Subst Abuse Tx Psychiatrist Name of Psychiatrist: [facility] Psychiatrist's Date of Appointment with Psychiatrist: 10/18/22 Time of Appointment with Psychiatrist: 9:15 AM Psychiatric Appointment Comment: Telehealth Therapist Name of Therapist: [facility] Therapist's Therapy Appointment Comment: [address] [place] [address] [id number], [place] [address]
[2022-10-12] MEDS: LURASIDONE HCL 40 MG TAB PO SCH (17:22)
[2022-10-12 19:36] LABS: Marijuana Quant, GCMS Urine 120 ng/mL (<5)
[2022-10-13 06:52] LABS: Chol HDL Ratio 3.3 (0-5)
--- NOTE | 2022-10-13 10:52 | Discharge Summary ---
Date of Service October 13, 2022 History of Present Illness Alina was taken by to a hospital in [place], [place] on 10/06/22. At that time the credit rating inspector did not uphold the involuntary commitment and he was released. He had reportedly been noncompliant with his Depakote and Latuda and has a history of inpatient care. He immediately left his home to drive to [facility] as he reportedly was researching mushrooms online and believed that he could start a graduate program here. He reportedly made some dramatic statements to family in some group chats with culminated in him leaving voicemail making is sound like he had been in a car accident. He turned off his phone for several hours to "play ." Upon arrival to [facility] he sought fdc in a local adventist. Police were called as he was reportedly stripping off his clothes and held a knife to his throat because the refrigerator at that time. He did require physical restraint by police and then IM Haldol and Ativan on arrival to ED. He has been more cooperative since that time, even accepting a few doses of PO Zyprexa and Ativan. He does exhibit poor physical boundaries and is religiously preoccupied singing me multiple prayers in Belarusian. Physical Exam Psychiatric See admission H&P and DOD assessment. Vital Signs (Past 24 Hours) Last Vital Signs Temp 36.5 C 10/13/22 06:40 Pulse 85 10/13/22 06:41 Resp 18 10/13/22 06:40 BP 123/78 10/13/22 06:41 Pulse Ox 99 10/11/22 14:16 O2 Del Method 10/11/22 14:16 Principal Diagnosis bipolar I disorder Psychiatric Data See daily stay summary. In short, safety was maintained and the patient was cooperative with care on the unit. Medication changes included a restart of Latuda with as needed Ativan and Zyprexa for additional coverage for restlessness. He this well. A family session was not held as he refused a release for his but his friend and extended family spoke several times with staff about his condition and aftercare planning. A safety plan was completed prior to discharge. Other than his initial presentation with IM Haldol and Ativan to the ED he was accepting of PO medications. There was a report by an ED staff member that he was confrontational with security on the am of his morning of admission to mental health. On talking with security he was grandiose and challenged them to a push up contest. Although he used rude language he was not aggressive. Over the course of the patient's care on the inpatient unit he became more organized, able to give history, cooperated with ROIs for his outpatient providers, and he expressed no delusions. He was less religiously preoccupied but still talked frequently of his Adventist poornima. 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 With regard to the knife at the adventist, he has repeated denied suicidal ideation. He is now able to recall the series of events and reports overreacting as he was restrained by the police in the past and reported incidents of being harrassed for practicing his Adventist poornima during his last hospitalization in 2020. He was able to communicate with his employer and plans to work remotely prn through the end of the year. His friend and cousin support his discharge at this time. Information could not be shared with an uncle who called with concerns about being extorted and was educated to notify police and indicated not of a severity that he would want Moustafa to have legal consequences. Given the reports of provocative social media posts/texts to family, a nurse sat with patient to review his phone prior to discharge to further document and potential SI prior to admission but also help him process any upseting messages made while manic. There were no threatening posts. He did post a [employer] bank account statement with a low balance requesting money from friends for 's IVF. He admits this was not a true representation of his finances and was in poor taste. He had previously reported he was part of a dance team and did have video of him performing at elaborate weddings. I also reviewed the patient's records provided by his outpatient psychiatric prescriber that confirm his medication history and appears he was rather stable 1 month ago (and some time before that) on Latuda. He has taken Zyprexa up to 15 mg a day in the past. The patient is requesting discharge and he is attending to his ADLs, taking medication as prescribed, and no longer exhibiting any psychosis. There is a viable safety plan and anyone he will be staying with after the hospitalization is aware of his condition and he has no access to guns. He agrees to abstain from MJ as heavily involved with previous hospitalizations. Although he tested positive for THC this stay, his quantitative level is consistent with his report of last use >2 weeks ago. With regards to prn medications, he is requesting Vistaril should he note a disruption in his sleep upon discharge. Prn Ativan has been helpful for his restlessness pending full resolution of his episode. He was given a short supply following query of PDMP. He contracted not to drive or combine with other sedating substances. His car is actually home in [place] so won't be driving for immediate near future. He will be provided today's dose of Latuda since he may have difficulty finding a pharmacy on the holiday. He stated that Latuda did not require an authorization in the past. Day of Discharge Assessment Today the patient voices readiness for discharge. They note improvement in mood and deny thoughts to harm self or others. Thoughts remain circumstantial but they are significantly improved from admission. There is no evidence of psychosis. They agree to take mediations as prescribed and keep follow-up appointments. They patient is being discharged as he no longer meets criteria for involuntary commitment under the [place] Mental Health procedures act. Transition of Care Transition Of Care Record: was reviewed with the patient Advance Directives Advance Directives Information Provided: Yes Advance Directives: No Mental Health Advance Directive: No Advance Directives on File: No Living Will: No Power of Crayon Painter: No Advance Directives Reason:: Declines as Mental Health Visit. Suicide Risk Level Suicide Risk Level Comments: Suicide risk at discharge is deemed low as the patient is no longer requiring 24-hr monitoring, has a safety plan, and is free of suicidal ideation at discharge. Risk Factors Assessment Male: Yes Do You Have Access To A Gun?: No Mental Health Diagnoses: Yes Previous Attempt: No Previous Psychiatric Hospitalization: Yes Protective Factors Assessment : Yes Supportive Family: Yes Tobacco Cessation at Discharge Tobacco Cessation Medication Prescribed at Discharge: Not Applicable/Non-Smoker Total Time Total Time Spent: Greater Than 30 Minutes Total Time Includes: Examination of the patient, Discharge Planning and Medication Reconciliation Discharge Data Consultations 10/11/22 06:31 Consult Psychiatry Routine Lab Results 10/09/22 10/09/22 10/09/22 13:25 13:25 13:25 WBC RBC Hgb Hct MCV MCH MCHC RDW Std Deviation RDW Coeff of Gallo Plt Count MPV Immature Gran % (Auto) Neut % (Auto) Lymph % (Auto) [place] % (Auto) Eos % (Auto) Baso % (Auto) Neut # (Auto) Lymph # (Auto) [place] # (Auto) Eos # (Auto) Baso # (Auto) Immature Gran # (Auto) Sodium Potassium Chloride Carbon Dioxide Anion Gap BUN Creatinine Est Cr Clr Drug Dosing Est GFR ( Amer) Est GFR (Non-Af Amer) BUN/Creatinine Ratio Glucose Fasting Glucose Calcium Total Bilirubin AST ALT Alkaline Phosphatase Total Protein Albumin Globulin Albumin/Globulin Ratio Triglycerides Cholesterol LDL Cholesterol, Calc VLDL Cholesterol, Calc HDL Cholesterol Cholesterol/HDL Ratio TSH Urine Color Yellow Urine Appearance Clear Urine pH 7.0 Ur Specific Linn 1.003 Urine Protein Negative Urine Glucose (UA) Negative Urine Ketones Negative Urine Blood Negative Urine Nitrite Negative Urine Bilirubin Negative Urine Urobilinogen Negative Ur Leukocyte Esterase Negative Salicylates Urine Opiates Screen Neg Ur Methadone, Qual Neg Acetaminophen Urine Barbiturates Neg Ur Phencyclidine (PCP) Neg U Amphetamin/Meth Scrn Neg MDMA (Ecstasy) Screen Neg U Benzodiazepines Scrn Neg Ur Cocaine Metabolite Neg U Marijuana (THC) Screen Pos H U Marijuana THC Carboxy 120 H Drug Screen Comment SEE NOTE Ethyl Alcohol mg/dL SARS-CoV-2, RNA, NAAT 10/09/22 10/09/22 10/09/22 13:35 13:49 13:49 WBC 7.48 RBC 5.13 Hgb 14.1 Hct 41.6 MCV 81.1 MCH 27.5 MCHC 33.9 RDW Std Deviation 36.2 L RDW Coeff of Gallo 12.3 Plt Count 268 MPV 11.3 Immature Gran % (Auto) 0.4 Neut % (Auto) 64.7 Lymph % (Auto) 27.9 [place] % (Auto) 6.0 Eos % (Auto) 0.5 Baso % (Auto) 0.5 Neut # (Auto) 4.83 Lymph # (Auto) 2.09 [place] # (Auto) 0.45 Eos # (Auto) 0.04 Baso # (Auto) 0.04 Immature Gran # (Auto) 0.03 H Sodium 137 Potassium 3.8 Chloride 102 Carbon Dioxide 27 Anion Gap 8 BUN 8 Creatinine 0.65 Est Cr Clr Drug Dosing Not Reportable Est GFR ( Amer) 148.2 Est GFR (Non-Af Amer) 127.8 BUN/Creatinine Ratio 12.3 Glucose 114 H Fasting Glucose Calcium 9.5 Total Bilirubin 0.9 AST 22 ALT 18 Alkaline Phosphatase 54 Total Protein 7.3 Albumin 4.5 Globulin 2.8 Albumin/Globulin Ratio 1.6 Triglycerides Cholesterol LDL Cholesterol, Calc VLDL Cholesterol, Calc HDL Cholesterol Cholesterol/HDL Ratio TSH Urine Color Urine Appearance Urine pH Ur Specific Linn Urine Protein Urine Glucose (UA) Urine Ketones Urine Blood Urine Nitrite Urine Bilirubin Urine Urobilinogen Ur Leukocyte Esterase Salicylates Urine Opiates Screen Ur Methadone, Qual Acetaminophen Urine Barbiturates Ur Phencyclidine (PCP) U Amphetamin/Meth Scrn MDMA (Ecstasy) Screen U Benzodiazepines Scrn Ur Cocaine Metabolite U Marijuana (THC) Screen U Marijuana THC Carboxy Drug Screen Comment Ethyl Alcohol mg/dL SARS-CoV-2, RNA, NAAT NEGATIVE 10/09/22 10/09/22 10/09/22 13:49 13:49 13:49 WBC RBC Hgb Hct MCV MCH MCHC RDW Std Deviation RDW Coeff of Gallo Plt Count MPV Immature Gran % (Auto) Neut % (Auto) Lymph % (Auto) [place] % (Auto) Eos % (Auto) Baso % (Auto) Neut # (Auto) Lymph # (Auto) [place] # (Auto) Eos # (Auto) Baso # (Auto) Immature Gran # (Auto) Sodium Potassium Chloride Carbon Dioxide Anion Gap BUN Creatinine Est Cr Clr Drug Dosing Est GFR ( Amer) Est GFR (Non-Af Amer) BUN/Creatinine Ratio Glucose Fasting Glucose Calcium Total Bilirubin AST ALT Alkaline Phosphatase Total Protein Albumin Globulin Albumin/Globulin Ratio Triglycerides Cholesterol LDL Cholesterol, Calc VLDL Cholesterol, Calc HDL Cholesterol Cholesterol/HDL Ratio TSH 0.794 Urine Color Urine Appearance Urine pH Ur Specific Linn Urine Protein Urine Glucose (UA) Urine Ketones Urine Blood Urine Nitrite Urine Bilirubin Urine Urobilinogen Ur Leukocyte Esterase Salicylates < 3.0 L Urine Opiates Screen Ur Methadone, Qual Acetaminophen < 3 L Urine Barbiturates Ur Phencyclidine (PCP) U Amphetamin/Meth Scrn MDMA (Ecstasy) Screen U Benzodiazepines Scrn Ur Cocaine Metabolite U Marijuana (THC) Screen U Marijuana THC Carboxy Drug Screen Comment Ethyl Alcohol mg/dL < 10.0 SARS-CoV-2, RNA, NAAT 10/13/22 05:54 WBC RBC Hgb Hct MCV MCH MCHC RDW Std Deviation RDW Coeff of Gallo Plt Count MPV Immature Gran % (Auto) Neut % (Auto) Lymph % (Auto) [place] % (Auto) Eos % (Auto) Baso % (Auto) Neut # (Auto) Lymph # (Auto) [place] # (Auto) Eos # (Auto) Baso # (Auto) Immature Gran # (Auto) Sodium Potassium Chloride Carbon Dioxide Anion Gap BUN Creatinine Est Cr Clr Drug Dosing Est GFR ( Amer) Est GFR (Non-Af Amer) BUN/Creatinine Ratio Glucose Fasting Glucose 101 H Calcium Total Bilirubin AST ALT Alkaline Phosphatase Total Protein Albumin Globulin Albumin/Globulin Ratio Triglycerides 91 Cholesterol 130 LDL Cholesterol, Calc 72 VLDL Cholesterol, Calc 18 HDL Cholesterol 40 Cholesterol/HDL Ratio 3.3 TSH Urine Color Urine Appearance Urine pH Ur Specific Linn Urine Protein Urine Glucose (UA) Urine Ketones Urine Blood Urine Nitrite Urine Bilirubin Urine Urobilinogen Ur Leukocyte Esterase Salicylates Urine Opiates Screen Ur Methadone, Qual Acetaminophen Urine Barbiturates Ur Phencyclidine (PCP) U Amphetamin/Meth Scrn MDMA (Ecstasy) Screen U Benzodiazepines Scrn Ur Cocaine Metabolite U Marijuana (THC) Screen U Marijuana THC Carboxy Drug Screen Comment Ethyl Alcohol mg/dL SARS-CoV-2, RNA, NAAT Hospital Course (1) Bipolar 1 disorder: Plan 10/12/22: continue Latuda 40 mg (previous dose 20 mg). Patient previously on monotherapy (depakote was sedating at work) so declines to resume Depakote. 10/11/22: The patient was admitted to the [facility] ([facility] mental health unit) on q15 min checks (behavioral with suicide precautions) for safety. The patient will participate in group, recreational, and milieu therapies and will be offered additional individual and family sessions as clinically appropriate. Risks/benefits/alternatives were reviewed re: antipsychotics for mood and/or psychosis. Discussion included but was not limited to metabolic side effects, risks of TD and suicidal thoughts. There were no abnormal motor movements at baseline. Fasting glucose and lipid panel ordered for baseline monitoring. Will order prn Ativan PO for agitation and Zyprexa IM. Will discuss Depakote retrial next. Collateral from family. Mental Health & Subst Abuse Tx Psychiatrist Name of Psychiatrist: [facility] Psychiatrist's Date of Appointment with Psychiatrist: 10/18/22 Time of Appointment with Psychiatrist: 9:15 AM Psychiatric Appointment Comment: Telehealth Therapist Name of Therapist: [facility]- Dr. Medel Therapist's Therapy Appointment Comment: [id number], [place] [address] Post Discharge Appointments Smoking Cessation Counseling Tobacco Cessation Medication Prescribed at Discharge: Not Applicable/Non-Smoker Discharge Plan Discharge Items Patient Disposition: Home - Self-Care Reason For Visit: BIPOLAR DISORDER Discharge Diagnosis: bipolar I disorder Activity: Resume your previous activity Non-emergency contact: Primary Care Provider, Psychiatrist and Therapist Call non-emergency contact if: you have any medication questions and your symptoms worsen Follow-up/Referrals: PCP,NO [Primary Care Provider] - Diet: Regular, Lactose Intolerant and Other - See Diet Comment Diet Comment: Adventist-no pork Addtl Attending Provider Instructions: SPECIAL CARE INSTRUCTIONS: 1. Follow through with your scheduled aftercare appointments. If unable to keep an appointment, please call to reschedule. 2. Take your medication only as prescribed. Medication should not be changed or stopped without the approval of your doctor. In the event of worsening symptoms or concerns about side effects, contact your doctor immediately. 3. Utilize new healthy coping skills, anger management skills, and stress management skills learned during your hospitalization. Journal feelings and process them with a support person. Identify stressors or situations that may result in relapse, deterioration or inappropriate behaviors and develop a plan to deal with those issues. 4. If your coping skills are ineffective and you are in crisis, contact your outpatient providers for direction. If unable to reach your providers, please call the [facility] CRISIS LINE AT , go to the [facility] walk-in center at [address], [address], [place], or go to the closest Emergency Room. 5. Avoid alcohol and un-prescribed drugs. 6. You have been provided with the Mental Health Advance Directives Pamphlet for your review. 7. Your condition is stable for discharge to outpatient level of care, but recovery is an ongoing process. Ifthoughts to harm yourself or others return, follow the safety plan developed during your stay. Planning for a safe return home includes securing weapons. Our treatment team recommends weaponsbe removed from the home until your outpatient provider reassesses your progress. In rare cases where the items themselvescannot be removed, guns and ammunitionshould be secured separatelyand keys stored by a reliable personoutside of the home. If you were admitted on an involuntary commitment, the police or other legal authorities may be involved in this process. AFTERCARE APPOINTMENTS: * Please call your insurance company prior to your scheduled appointment to confirm your aftercare providers are covered. Take your insurance information to your appointments. WHO TO CALL AND WHEN: Medical Emergencies: For questions or emergencies related to your hospital stay, please contact the Inpatient Behavioral Health Unit at [phone]. A museum archivist is on-call 12/06 for the Behavioral Health Unit for emergencies At any time you feel your situation is an emergency, you may also call 911 immediately. Pending Studies at Discharge: No Stand-Alone Forms: My [facility] Early[employer], Smoking Cessation Medications and DC Order Prescriptions: New hydroxyzine HCl 50 mg tablet 50 mg PO HSZ PRN (Reason: insomnia) 10 Days Qty: 10 0RF lorazepam 1 mg Tablet 1 mg PO Q4 PRN (Reason: anxiety) Qty: 10 0RF Changed Latuda 40 mg tablet 40 mg PO DAILYBD Qty: 30 0RF Rx Instructions: take with meal of at least 350 calories Discontinued divalproex 500 mg tablet,delayed release (DR/EC) 500 mg PO BID Rx Instructions: LAST FILLED 10/06/22 FOR 14 DAYS/28 TABS. PT DENIES TAKING THIS MED. Discharge Orders: Discharge Order (Routine); Ordered 10/13/22 Ordered By: Marcelle Davenport Admission Data Admit Date/Time: 10/11/22 13:48 Attending Provider: Marcelle Davenport Admit Provider: Marcelle Davenport Primary Care Provider: PCP,NO Other Providers: Krys Bustamante ; Marcelle Davenport ; Francoise Cheney Other Interventions: Discharge Summary Assessment (RN) Last Done: 10/13/22 11:19 PSY Interdisciplinary Discharge Planning Last Done: 10/13/22 11:21 Coding Level of Care Code 39996 D/C day mgmt > 30 min Diagnoses Bipolar 1 disorder F31.9
[2022-10-13] MEDS: LORazepam 1 MG TAB PO PRN (12:48)
[2022-10-13] MEDS: LURASIDONE HCL 40 MG TAB PO SCH (12:48)
== END 2022-10-13 16:15 | disposition home or self-care (01) | DRG 885 ==
LOC: ED 12:19 → 3S 10-11 13:48